=== PATIENT | female | born 1970 | race Caucasian/White ===

== ENCOUNTER → 2017-04-03 | Outpatient (CLI) | payer OTHER ==
[2017-04-03 11:34] LABS: HEMATOCRIT 43.8 % (34.6-47.8); HEMOGLOBIN 14.8 g/dL (11.7-16.4); WHITE BLOOD COUNT 8.6 x10^3/uL (3.4-10)
[2017-04-03 11:56] LABS: ASPARTATE AMINO TRANSFERASE 19 U/L (15-37); C-REACTIVE PROTEIN, QUANT 0.05 mg/dL (0.02-0.49)
== END | disposition home or self-care (01) ==
LOC: LAB 11:21
PROVIDERS: ATTEND Internal Medicine
DX: M05.79 Rheumatoid arthritis with rheumatoid factor of multiple sites without organ or systems involvement (principal); Z79.899 Other long term (current) drug therapy
CPT/HCPCS: 36415; 80076; 82565; 85025; 85651; 86140

== ENCOUNTER 2017-04-22 17:53 | Emergency (ER) | payer OTHER ==
[~2017-04-22] VITALS: Ht 162.6 cm; Wt 72.0 kg
[2017-04-22] MEDS ORDERED: ALBUTEROL/IPRATROPIUM 2.5MG/0.5MG, 3 ML ONE (18:26)
[2017-04-22] MEDS ORDERED: PLEASE ENTER ALLERGIES MC SCH ×2 (18:30)
[2017-04-22 18:31] LABS: HEMATOCRIT 43.7 % (34.6-47.8); HEMOGLOBIN 14.7 g/dL (11.7-16.4); WHITE BLOOD COUNT 8.4 x10^3/uL (3.4-10)
[2017-04-22] MEDS: ALBUTEROL/IPRATROPIUM 2.5MG/0.5MG, 3 ML NPPB SCH (18:40)
[2017-04-22 18:42] LABS: BLOOD UREA NITROGEN 14 mg/dL (7-18)
[2017-04-22] MEDS ORDERED: OMNIPAQUE 350 MG/ML, 100ML BOTTLE ONE (19:00)
[2017-04-22] MEDS ORDERED: IBUP-1222 PO (19:56)
[2017-04-22] MEDS ORDERED: BECL8.7A7 INH (19:56)
[2017-04-22] MEDS ORDERED: ALBU8.5H8 INH (19:56)
[2017-04-22] MEDS ORDERED: ADAL40KI SQ (19:56)
[2017-04-22 20:19] VITALS: BP 105/75
== END 2017-04-22 20:48 | disposition home or self-care (01) ==
LOC: ED 18:01
DX: J45.31 Mild persistent asthma with (acute) exacerbation (principal)
CPT/HCPCS: 36415; 71020; 71275; 80048; 82040; 85025; 93005; 94640; 99285; J7512; Q9967; J7620

== ENCOUNTER → 2017-06-15 | Outpatient (CLI) | payer OTHER ==
[~2017-06-15] MED LIST: ADAL40KI SQ; ALBU8.5H8 INH; BECL8.7A7 INH; IBUP-1222 PO
[2017-06-15 09:13] LABS: ASPARTATE AMINO TRANSFERASE 12 U/L (15-37); BLOOD UREA NITROGEN 16 mg/dL (7-18)
[2017-06-15 09:34] LABS: HEMATOCRIT 44.5 % (34.6-47.8); HEMOGLOBIN 15.1 g/dL (11.7-16.4); WHITE BLOOD COUNT 8.8 x10^3/uL (3.4-10)
[2017-06-15 09:37] LABS: C-REACTIVE PROTEIN, QUANT 0.05 mg/dL (0.02-0.49)
== END | disposition home or self-care (01) ==
LOC: LAB 08:48
PROVIDERS: ATTEND Nurse Practitioner Family
DX: Z13.89 Encounter for screening for other disorder (principal); Z51.81 Encounter for therapeutic drug level monitoring; M05.79 Rheumatoid arthritis with rheumatoid factor of multiple sites without organ or systems involvement; Z79.899 Other long term (current) drug therapy
CPT/HCPCS: 36415; 80053; 80061; 82248; 85025; 85651; 86140

== ENCOUNTER → 2018-01-14 | Outpatient (CLI) | payer OTHER ==
[2018-01-14 09:13] LABS: BASOPHILS # (AUTO) 0.02 x10^3/uL (0-0.1); BASOPHILS % (AUTO) 0 % (0-1); EOSINOPHILS # (AUTO) 0.13 x10^3/uL (0-0.4); EOSINOPHILS % (AUTO) 2 % (1-7); LYMPHOCYTES # (AUTO) 1.36 x10^3/uL (1-3.4); LYMPHOCYTES % (AUTO) 19 % (22-44); MD NO; MEAN CORPUSCULAR HEMOGLOBIN 31.3 pg (27.0-34.8); MEAN CORPUSCULAR HGB CONC 33.9 g/dL (32.4-35.8); MEAN CORPUSCULAR VOLUME 92.2 fL (80-100); MEAN PLATELET VOLUME 10.4 fL (7.4-10.4); MONOCYTES # (AUTO) 0.42 x10^3/uL (0.2-0.8); MONOCYTES % (AUTO) 6 % (2-9); NEUTROPHILS # (AUTO) 5.19 x10^3/uL (1.8-6.8); NEUTROPHILS % (AUTO) 73 % (42-75); PLATELET COUNT 207 x10^3/uL (130-400); RED BLOOD COUNT 4.88 x10^6/uL (3.82-5.3); RED CELL DISTRIBUTION WIDTH 13.4 % (9.6-15.2)
[2018-01-14 09:28] LABS: ALBUMIN 3.7 g/dL (3.4-5.0); BILIRUBIN, DIRECT 0.1 mg/dL (0.1-0.2)
[2018-01-14 09:31] LABS: ALANINE AMINOTRANSFERASE 32 U/L (12-78); ALKALINE PHOSPHATASE 67 U/L (45-117); BILIRUBIN,INDIRECT 0.4 mg/dL (0.0-2.0); BILIRUBIN,TOTAL 0.5 mg/dL (0.2-1.0); C-REACTIVE PROTEIN, QUANT 0.08 mg/dL (0.02-0.49); CREATININE 0.68 mg/dL (0.55-1.02); TOTAL PROTEIN 7.7 g/dL (6.4-8.2)
== END | disposition home or self-care (01) ==
LOC: LAB 08:58
PROVIDERS: ATTEND Internal Medicine
DX: M05.79 Rheumatoid arthritis with rheumatoid factor of multiple sites without organ or systems involvement (principal); R76.0 Raised antibody titer; Z79.899 Other long term (current) drug therapy
CPT/HCPCS: 36415; 80076; 82565; 85025; 85651; 86140

== ENCOUNTER → 2018-06-18 | Outpatient (CLI) | payer OTHER ==
[2018-06-18 13:26] LABS: BASOPHILS # (AUTO) 0.03 x10^3/uL (0-0.1); BASOPHILS % (AUTO) 0 % (0-1); EOSINOPHILS # (AUTO) 0.29 x10^3/uL (0-0.4); EOSINOPHILS % (AUTO) 3 % (1-7); LYMPHOCYTES # (AUTO) 2.28 x10^3/uL (1-3.4); LYMPHOCYTES % (AUTO) 24 % (22-44); MD NO; MEAN CORPUSCULAR HEMOGLOBIN 31.3 pg (27.0-34.8); MEAN CORPUSCULAR HGB CONC 33.9 g/dL (32.4-35.8); MEAN CORPUSCULAR VOLUME 92.4 fL (80-100); MEAN PLATELET VOLUME 9.9 fL (7.4-10.4); MONOCYTES % (AUTO) 4 % (2-9); NEUTROPHILS # (AUTO) 6.56 x10^3/uL (1.8-6.8); NEUTROPHILS % (AUTO) 69 % (42-75); PLATELET COUNT 221 x10^3/uL (130-400); RED BLOOD COUNT 4.91 x10^6/uL (3.82-5.3); RED CELL DISTRIBUTION WIDTH 13.2 % (9.6-15.2)
[2018-06-18 13:41] LABS: ALBUMIN 3.8 g/dL (3.4-5.0)
[2018-06-18 13:49] LABS: ALANINE AMINOTRANSFERASE 44 U/L (12-78); ALKALINE PHOSPHATASE 72 U/L (45-117); BILIRUBIN, DIRECT 0.1 mg/dL (0.1-0.2); BILIRUBIN,INDIRECT 0.5 mg/dL (0.0-2.0); BILIRUBIN,TOTAL 0.6 mg/dL (0.2-1.0); C-REACTIVE PROTEIN, QUANT 0.03 mg/dL (0.02-0.49); CREATININE 0.89 mg/dL (0.55-1.02); TOTAL PROTEIN 7.9 g/dL (6.4-8.2)
[2018-06-18 14:02] LABS: HCT (SEDRATE) 45.3 % (34.6-47.8)
== END | disposition home or self-care (01) ==
LOC: LAB 13:13
PROVIDERS: ATTEND Internal Medicine
DX: M05.79 Rheumatoid arthritis with rheumatoid factor of multiple sites without organ or systems involvement (principal); Z79.899 Other long term (current) drug therapy
CPT/HCPCS: 36415; 80076; 82565; 85025; 85651; 86140

== ENCOUNTER 2018-12-05 03:18 | Emergency (ER) | payer OTHER ==
[~2018-12-05] VITALS: Ht 162.6 cm; Wt 71.8 kg
[2018-12-05] MEDS ORDERED: MORPHINE SULFATE 4 MG/ML, 1ML ONE (03:50)
[2018-12-05] MEDS ORDERED: ONDANSETRON 2MG/ML, 2ML ONE (03:50)
[2018-12-05] MEDS ORDERED: ONDANSETRON 2MG/ML, 2ML IVPush ONE (04:00)
[2018-12-05] MEDS ORDERED: SODIUM CHLORIDE FLUSH 10ML SYR IVF ONE (04:00)
[2018-12-05] MEDS ORDERED: MORPHINE SULFATE 4 MG/ML, 1ML IVPush PRN (04:00)
--- NOTE | 2018-12-05 04:03 | NUR ---
PT MEDICATED PER OCT. MONITORS IN PLACE, SIDERAILS UP 2, CALL LIGHT WITHIN REACH. PROVIDED PT WITH HAT, AWARE OF NEED FOR STOOL SAMPLE
[2018-12-05] MEDS ORDERED: BUDE10.22 INH (04:07)
--- NOTE | 2018-12-05 04:19 | NUR ---
CT PENDING LABS/CREATINE
[2018-12-05 04:24] LABS: BASOPHILS # (AUTO) 0.05 x10^3/uL (0-0.1); BASOPHILS % (AUTO) 0 % (0-1); EOSINOPHILS # (AUTO) 0.07 x10^3/uL (0-0.4); EOSINOPHILS % (AUTO) 1 % (1-7); LYMPHOCYTES # (AUTO) 0.81 x10^3/uL (1-3.4); LYMPHOCYTES % (AUTO) 6 % (22-44); MD NO; MEAN CORPUSCULAR HEMOGLOBIN 30.7 pg (27.0-34.8); MEAN CORPUSCULAR HGB CONC 33.9 g/dL (32.4-35.8); MEAN CORPUSCULAR VOLUME 90.4 fL (80-100); MEAN PLATELET VOLUME 10.2 fL (7.4-10.4); MONOCYTES # (AUTO) 0.37 x10^3/uL (0.2-0.8); MONOCYTES % (AUTO) 3 % (2-9); NEUTROPHILS # (AUTO) 12.57 x10^3/uL (1.8-6.8); NEUTROPHILS % (AUTO) 91 % (42-75); PLATELET COUNT 204 x10^3/uL (130-400); RED BLOOD COUNT 4.81 x10^6/uL (3.82-5.3); RED CELL DISTRIBUTION WIDTH 13.1 % (9.6-15.2)
[2018-12-05 04:31] LABS: ALBUMIN 3.3 g/dL (3.4-5.0); ANION GAP 4 mmol/L (5-15); CALCIUM 8.6 mg/dL (8.5-10.1); CHLORIDE 106 mmol/L (98-107)
[2018-12-05 04:35] LABS: ALANINE AMINOTRANSFERASE 37 U/L (12-78); ALKALINE PHOSPHATASE 82 U/L (45-117); BILIRUBIN,TOTAL 0.5 mg/dL (0.2-1.0); CREATININE 0.77 mg/dL (0.55-1.02); TOTAL PROTEIN 7.3 g/dL (6.4-8.2)
--- NOTE | 2018-12-05 04:44 | NUR ---
pt resting on gurney, monitors in place, call light within reach. awaiting ct
--- NOTE | 2018-12-05 05:04 | NUR ---
PT TO CT
[2018-12-05] MEDS ORDERED: OMNIPAQUE 350 MG/ML, 100ML BOTTLE ONE (05:06)
--- NOTE | 2018-12-05 05:17 | NUR ---
pt resting on gurney, monitors in place, call light within reach. pt stated she is not able to provide stool sample at this time, awaiting ct result
--- NOTE | 2018-12-05 05:51 | NUR ---
given dc instruction pt understood obtained consent sign of narcotic rescription pt understood pt up ambulated to check out
[2018-12-05 05:53] VITALS: BP 124/82
== END 2018-12-05 05:56 | disposition home or self-care (01) ==
LOC: ED 05:29
DX: K92.1 Melena (principal); K52.9 Noninfective gastroenteritis and colitis, unspecified
CPT/HCPCS: 36415; 74177; 80053; 83690; 85025; 96374; 96375; 99284; J2405; Q9967

== ENCOUNTER 2018-12-30 13:25 | Outpatient (CLI) | payer OTHER ==
[~2018-12-30 13:25] MED LIST changes: +BUDE10.22 INH
[2018-12-30 13:39] LABS: BASOPHILS # (AUTO) 0.04 x10^3/uL (0-0.1); BASOPHILS % (AUTO) 0 % (0-1); EOSINOPHILS # (AUTO) 0.19 x10^3/uL (0-0.4); EOSINOPHILS % (AUTO) 2 % (1-7); LYMPHOCYTES # (AUTO) 1.83 x10^3/uL (1-3.4); LYMPHOCYTES % (AUTO) 17 % (22-44); MD NO; MEAN CORPUSCULAR HEMOGLOBIN 29.5 pg (27.0-34.8); MEAN CORPUSCULAR HGB CONC 32.3 g/dL (32.4-35.8); MEAN CORPUSCULAR VOLUME 91.1 fL (80-100); MEAN PLATELET VOLUME 10.4 fL (7.4-10.4); MONOCYTES % (AUTO) 6 % (2-9); NEUTROPHILS # (AUTO) 8.26 x10^3/uL (1.8-6.8); NEUTROPHILS % (AUTO) 76 % (42-75); PLATELET COUNT 218 x10^3/uL (130-400); RED BLOOD COUNT 4.78 x10^6/uL (3.82-5.3); RED CELL DISTRIBUTION WIDTH 13.3 % (9.6-15.2)
[2018-12-30 13:47] LABS: ALANINE AMINOTRANSFERASE 30 U/L (12-78); ALBUMIN 3.5 g/dL (3.4-5.0); BILIRUBIN, DIRECT 0.2 mg/dL (0.1-0.2); C-REACTIVE PROTEIN, QUANT 0.13 mg/dL (0.02-0.49); CREATININE 0.79 mg/dL (0.55-1.02)
[2018-12-30 13:49] LABS: ALKALINE PHOSPHATASE 74 U/L (45-117); BILIRUBIN,INDIRECT 0.6 mg/dL (0.0-2.0); BILIRUBIN,TOTAL 0.8 mg/dL (0.2-1.0); TOTAL PROTEIN 7.7 g/dL (6.4-8.2)
[2018-12-30 14:37] LABS: HCT (SEDRATE) 43.5 % (34.6-47.8)
== END 2018-12-30 23:59 | disposition home or self-care (01) ==
LOC: LAB 13:25
PROVIDERS: ATTEND Internal Medicine
DX: M05.79 Rheumatoid arthritis with rheumatoid factor of multiple sites without organ or systems involvement (principal); Z79.899 Other long term (current) drug therapy
CPT/HCPCS: 36415; 80076; 82565; 85025; 85651; 86140

== ENCOUNTER → 2019-07-10 | Outpatient (CLI) | payer OTHER | END | disposition home or self-care (01) | LOC: CFH 08:52 | PROVIDERS: ATTEND Internal Medicine | DX: Z12.2 Encounter for screening for malignant neoplasm of respiratory organs (principal); J44.9 Chronic obstructive pulmonary disease, unspecified; F17.200 Nicotine dependence, unspecified, uncomplicated; M05.79 Rheumatoid arthritis with rheumatoid factor of multiple sites without organ or systems involvement; Z79.899 Other long term (current) drug therapy | CPT/HCPCS: G0297 ==

== ENCOUNTER 2019-08-09 13:21 | Inpatient (IN) | payer OTHER ==
[~2019-08-09] VITALS: Ht 162.6 cm; Wt 75.7 kg
--- NOTE | 2019-08-09 14:11 | NUR ---
PT CAME IN CO OF "RASH ALL OVER HER BODY". ALL HER SKIN IS COVERED IN RED RASH LIKE PATCHES. THIS STARTED ON SUNDAY AND HAS BEEN GETTING WORSE. PT STATES IT HAMMONDS AT TIME. DOESNT ITCH. CALL LIGHT WITHIN REACH. AWAITING LAB RESULTS
[2019-08-09] MEDS ORDERED: ALBUTEROL SULFATE 2.5 MG/3 ML ONE (14:18)
[2019-08-09 14:21] LABS: HCT (SEDRATE) 49.9 % (34.6-47.8); MEAN CORPUSCULAR HEMOGLOBIN 31.2 pg (27.0-34.8); MEAN CORPUSCULAR HGB CONC 33.2 g/dL (32.4-35.8); MEAN CORPUSCULAR VOLUME 94.1 fL (80-100); MEAN PLATELET VOLUME 10.7 fL (7.4-10.4); PLATELET COUNT 222 x10^3/uL (130-400); RED BLOOD COUNT 5.29 x10^6/uL (3.82-5.3); RED CELL DISTRIBUTION WIDTH 13.4 % (9.6-15.2)
[2019-08-09 14:24] LABS: ALANINE AMINOTRANSFERASE 67 U/L (12-78); ALBUMIN 2.7 g/dL (3.4-5.0); ANION GAP 9 mmol/L (5-15); CALCIUM 8.3 mg/dL (8.5-10.1); CHLORIDE 101 mmol/L (98-107); CREATININE 1.26 mg/dL (0.55-1.02)
[2019-08-09] MEDS ORDERED: ALBUTEROL SULFATE 2.5 MG/3 ML NPPB ONE (14:30)
[2019-08-09 14:31] LABS: ALKALINE PHOSPHATASE 103 U/L (45-117); BILIRUBIN,TOTAL 0.8 mg/dL (0.2-1.0); TOTAL PROTEIN 6.7 g/dL (6.4-8.2)
[2019-08-09 14:31] LABS: CULTURE INDICATED? YES; MICROSCOPIC INDICATED
[2019-08-09 14:47] LABS: MD YES
[2019-08-09 14:59] LABS: <PLATELET ESTIMATE> ADEQUATE; <RBC MORPHOLOGY> NORMAL; LARGE PLATELETS 1+
[2019-08-09] MEDS ORDERED: SODIUM CHLORIDE 0.9%, 500ML IVBOLUS ONE (15:30)
[2019-08-09] MEDS: PIPERACILLIN/TAZO/PMX 3.375GM 50 ML IVPB ONE ×2 (15:30→16:03)
[2019-08-09] MEDS ORDERED: VANCOMYCIN PER PHARMACY MC ONE (15:30)
[2019-08-09] MEDS ORDERED: PIPERACILLIN/TAZO/PMX 3.375GM 50 ML ONE (16:00)
[2019-08-09] MEDS ORDERED: PHARMACOKINETIC CONSULTATION MC ONE (16:00)
[2019-08-09] MEDS ORDERED: VANCOMYCIN 1,500 MG in SODIUM CHLORIDE 0.9% 250 ML IV ONE (16:00)
[2019-08-09] MEDS ORDERED: ENOXAPARIN 40 MG/0.4 ML SQ SCH (17:00)
[2019-08-09] MEDS ORDERED: DIPHENHYDRAMINE 25 MG CAPSULE PO PRN (17:00)
[2019-08-09] MEDS ORDERED: hydrALAzine 20 MG/ML, 1ML IVPush PRN (17:00)
[2019-08-09] MEDS ORDERED: DOCUSATE 100 MG CAPSULE PO PRN (17:00)
[2019-08-09] MEDS ORDERED: ONDANSETRON 2MG/ML, 2ML IVPush PRN (17:00)
[2019-08-09] MEDS ORDERED: ONDANSETRON ODT 4 MG PO PRN (17:00)
[2019-08-09 17:20] VITALS: BP 94/64
[2019-08-09 17:21] LABS: INTERNATIONAL NORMALIZED RATIO 1.17 (0.93-1.1); PROTHROMBIN TIME 12.2 Seconds (9.6-11.5)
[2019-08-09] MEDS ORDERED: LACTATED RINGERS 1,000 ML IVBOLUS ONE (17:30)
[2019-08-09] MEDS: ALBUTEROL/IPRATROPIUM 2.5MG/0.5MG, 3 ML NPPB SCH ×2 (19:30→23:30)
[2019-08-09] MEDS: DIPHENHYDRAMINE 25 MG CAPSULE PO SCH ×2 (19:45→21:55)
[2019-08-09] MEDS: BUDESONIDE 0.5 MG/2 ML INHA NPPB SCH (20:37)
[2019-08-09] MEDS ORDERED: ALBUTEROL SULFATE 2.5 MG/3 ML NPPB SCH (21:00)
[2019-08-09] MEDS ORDERED: ALBUTEROL SULFATE 2.5 MG/3 ML NPPB PRN (21:00)
[2019-08-09] MEDS ORDERED: VANCOMYCIN 1,500 MG in SODIUM CHLORIDE 0.9% 250 ML IVPB ONE (21:49)
[2019-08-09] MEDS: FAMOTIDINE 20 MG TABLET PO SCH (21:55)
[2019-08-09] MEDS: HEPARIN 5,000 UNITS/ML, 1ML SQ SCH (21:56)
[2019-08-09] MEDS: SODIUM CHLORIDE 0.9% 1,000 ML IV SCH (22:48)
[2019-08-09] MEDS ORDERED: OMNIPAQUE 350 MG/ML, 100ML BOTTLE ONE (23:28)
[2019-08-10 01:56] LABS: RAPID INFLUENZA A Negative (Negative); RAPID INFLUENZA B Negative (Negative)
[2019-08-10 01:58] VITALS: BP 98/70
[2019-08-10 06:02] LABS: INTERNATIONAL NORMALIZED RATIO 1.15 (0.93-1.1); MEAN CORPUSCULAR HEMOGLOBIN 31.4 pg (27.0-34.8); MEAN CORPUSCULAR HGB CONC 33.4 g/dL (32.4-35.8); MEAN CORPUSCULAR VOLUME 94.1 fL (80-100); MEAN PLATELET VOLUME 11.3 fL (7.4-10.4); PLATELET COUNT 145 x10^3/uL (130-400); RED BLOOD COUNT 4.35 x10^6/uL (3.82-5.3); RED CELL DISTRIBUTION WIDTH 13.2 % (9.6-15.2)
[2019-08-10 06:08] LABS: MD YES
[2019-08-10 06:10] LABS: CHLORIDE 109 mmol/L (98-107)
[2019-08-10] MEDS: HEPARIN 5,000 UNITS/ML, 1ML SQ SCH ×3 (06:24→21:56)
[2019-08-10 06:28] LABS: ALANINE AMINOTRANSFERASE 47 U/L (12-78); ALBUMIN 2.2 g/dL (3.4-5.0); ALKALINE PHOSPHATASE 77 U/L (45-117); ANION GAP 7 mmol/L (5-15); BILIRUBIN,TOTAL 0.4 mg/dL (0.2-1.0); CALCIUM 7.6 mg/dL (8.5-10.1); CREATININE 0.72 mg/dL (0.55-1.02); TOTAL PROTEIN 5.8 g/dL (6.4-8.2)
[2019-08-10 06:37] LABS: BAND#(MANUAL) 6.97 x10^3/uL; BANDS%(MANUAL) 43 % (0-7); EOS#(MANUAL) 0.16 x10^3/uL (0.0-0.4); EOS% (MANUAL) 1 % (1-7); LYMPH#(MANUAL) 0.16 x10^3/uL (1-3.4); LYMPHS% (MANUAL) 1 % (22-44); METAMYELOCYTES# (MANUAL) 0.32 x10^3/uL (0-0); METAMYELOCYTES% (MANUAL) 2 % (0-1); MONOS#(MANUAL) 0.16 x10^3/uL (0.3-2.7); MONOS% (MANUAL) 1 % (2-9); SEG#(MANUAL) 8.42 x10^3/uL (1.8-6.8); SEGS% (MANUAL) 52 % (42-75)
[2019-08-10 06:38] LABS: PMNS WITH VACUOLES 1+
[2019-08-10 06:39] LABS: <PLATELET ESTIMATE> ADEQUATE
[2019-08-10 06:47] LABS: LARGE PLATELETS 1+
[2019-08-10 06:48] LABS: <RBC MORPHOLOGY> NORMAL
[2019-08-10] MEDS ORDERED: CEFTRIAXONE PMX 2GM/50ML 50 ML IV SCH (07:00)
[2019-08-10 07:06] VITALS: BP 100/65
[2019-08-10] MEDS: ALBUTEROL/IPRATROPIUM 2.5MG/0.5MG, 3 ML NPPB SCH ×2 (08:00→20:16)
[2019-08-10] MEDS: BUDESONIDE 0.5 MG/2 ML INHA NPPB SCH ×2 (08:00→20:16)
[2019-08-10] MEDS: DIPHENHYDRAMINE 25 MG CAPSULE PO SCH ×3 (08:59→21:55)
[2019-08-10] MEDS: SODIUM CHLORIDE 0.9% 1,000 ML IV SCH (08:59)
[2019-08-10] MEDS: FAMOTIDINE 20 MG TABLET PO SCH ×2 (09:00→21:55)
[2019-08-10] MEDS ORDERED: AZITHROMYCIN 250 MG TABLET PO SCH (09:00)
[2019-08-10 09:37] LABS: SEGS% (MANUAL) 70 % (42-75)
[2019-08-10 09:40] LABS: BAND#(MANUAL) 3.89 x10^3/uL; BANDS%(MANUAL) 21 % (0-7); SEG#(MANUAL) 12.95 x10^3/uL (1.8-6.8)
[2019-08-10 09:41] LABS: LYMPH#(MANUAL) 0.19 x10^3/uL (1-3.4); LYMPHS% (MANUAL) 1 % (22-44); MONOS% (MANUAL) 2 % (2-9)
[2019-08-10 09:42] LABS: EOS#(MANUAL) 1.11 x10^3/uL (0.0-0.4); EOS% (MANUAL) 6 % (1-7); MONOS#(MANUAL) 0.37 x10^3/uL (0.3-2.7)
[2019-08-10 09:43] LABS: FREE T4 (FREE THYROXINE) 1.09 ng/dL (0.76-1.46)
[2019-08-10] MEDS ORDERED: LIDOCAINE 1%, 2ML INFIL ONE (11:30)
[2019-08-10 13:51] VITALS: BP 93/59
[2019-08-10 19:24] VITALS: BP 102/66
[2019-08-11 02:08] VITALS: BP 110/72
[2019-08-11] MEDS: HEPARIN 5,000 UNITS/ML, 1ML SQ SCH ×2 (06:11→14:00)
[2019-08-11 06:20] LABS: MEAN CORPUSCULAR HEMOGLOBIN 31.1 pg (27.0-34.8); MEAN CORPUSCULAR VOLUME 94.4 fL (80-100); MEAN PLATELET VOLUME 10.9 fL (7.4-10.4); PLATELET COUNT 210 x10^3/uL (130-400); RED BLOOD COUNT 4.18 x10^6/uL (3.82-5.3); RED CELL DISTRIBUTION WIDTH 13.3 % (9.6-15.2)
[2019-08-11 06:39] LABS: MD YES
[2019-08-11 06:43] LABS: <RBC MORPHOLOGY> NORMAL; BAND#(MANUAL) 3.63 x10^3/uL; BANDS%(MANUAL) 25 % (0-7); EOS#(MANUAL) 0.15 x10^3/uL (0.0-0.4); EOS% (MANUAL) 1 % (1-7); LYMPH#(MANUAL) 0.87 x10^3/uL (1-3.4); LYMPHS% (MANUAL) 6 % (22-44); METAMYELOCYTES# (MANUAL) 0.15 x10^3/uL (0-0); METAMYELOCYTES% (MANUAL) 1 % (0-1); SEG#(MANUAL) 9.72 x10^3/uL (1.8-6.8); SEGS% (MANUAL) 67 % (42-75)
[2019-08-11 06:44] LABS: <PLATELET ESTIMATE> ADEQUATE; LARGE PLATELETS 1+
[2019-08-11 06:45] LABS: PMNS WITH VACUOLES 1+
[2019-08-11 07:30] VITALS: BP 120/79
[2019-08-11] MEDS: DIPHENHYDRAMINE 25 MG CAPSULE PO SCH ×2 (08:39→17:14)
[2019-08-11] MEDS: CEFDINIR 300 MG CAPSULE PO SCH ×2 (08:39→08:42)
[2019-08-11] MEDS: FAMOTIDINE 20 MG TABLET PO SCH (08:39)
[2019-08-11] MEDS: ALBUTEROL/IPRATROPIUM 2.5MG/0.5MG, 3 ML NPPB SCH ×2 (10:20→10:30)
[2019-08-11] MEDS: BUDESONIDE 0.5 MG/2 ML INHA NPPB SCH (10:20)
[2019-08-11 12:40] LABS: MEAN CORPUSCULAR HEMOGLOBIN 31.3 pg (27.0-34.8); MEAN CORPUSCULAR HGB CONC 33.2 g/dL (32.4-35.8); MEAN CORPUSCULAR VOLUME 94.4 fL (80-100); PLATELET COUNT 219 x10^3/uL (130-400); RED BLOOD COUNT 4.24 x10^6/uL (3.82-5.3); RED CELL DISTRIBUTION WIDTH 13.3 % (9.6-15.2)
[2019-08-11 13:00] VITALS: BP 117/73
[2019-08-11 13:23] LABS: MD YES
[2019-08-11 13:29] LABS: <PLATELET ESTIMATE> ADEQUATE; <RBC MORPHOLOGY> NORMAL; BAND#(MANUAL) 2.91 x10^3/uL; BANDS%(MANUAL) 17 % (0-7); LARGE PLATELETS 1+; LYMPH#(MANUAL) 0.86 x10^3/uL (1-3.4); LYMPHS% (MANUAL) 5 % (22-44); MONOS#(MANUAL) 0.34 x10^3/uL (0.3-2.7); MONOS% (MANUAL) 2 % (2-9); SEGS% (MANUAL) 76 % (42-75)
[2019-08-11] MEDS ORDERED: FAMO20TA7 PO (16:06)
[2019-08-11] MEDS ORDERED: DIPH25CA26 PO (16:06)
== END 2019-08-11 18:15 | disposition home or self-care (01) | DRG 872 ==
LOC: ED 15:15 → EDIP 15:46 → 3N 17:15 → 4EST 20:39
PROVIDERS: ADMIT Family Medicine; ATTEND Family Medicine
PROC: 0HB6XZX Excision of Back Skin, External Approach, Diagnostic (ICD-10-PCS; principal; 2019-08-10)
DX: A41.9 Sepsis, unspecified organism (principal); J44.1 Chronic obstructive pulmonary disease with (acute) exacerbation; N39.0 Urinary tract infection, site not specified; D75.1 Secondary polycythemia; F17.210 Nicotine dependence, cigarettes, uncomplicated; L30.9 Dermatitis, unspecified; L50.9 Urticaria, unspecified; M06.9 Rheumatoid arthritis, unspecified; N20.0 Calculus of kidney
CPT/HCPCS: 36415; 84145; 87400; J3490; J7613; J7620; J7626; 71045; 74178; 80053; 81001; 83605; 83615; 83655; 83735; 84100; 84110; 84120; 84439; 84443; 84481; 85025; 85610; 85651; 85730; 86140; 87040; 87086; 88305; 94640; G0378; J0696; J1644; J2543; J3370; Q9967; J7030; J7040; J7050; J7120; J7512; Q0163

== ENCOUNTER → 2019-09-22 | Outpatient (CLI) | payer OTHER ==
[~2019-09-22] MED LIST changes: +DIPH25CA26 PO; +FAMO20TA7 PO
[2019-09-22 10:29] LABS: BASOPHILS # (AUTO) 0.01 x10^3/uL (0-0.1); BASOPHILS % (AUTO) 0 % (0-1); EOSINOPHILS # (AUTO) 0.13 x10^3/uL (0-0.4); EOSINOPHILS % (AUTO) 2 % (1-7); LYMPHOCYTES # (AUTO) 1.74 x10^3/uL (1-3.4); LYMPHOCYTES % (AUTO) 19 % (22-44); MD NO; MEAN CORPUSCULAR HEMOGLOBIN 30.9 pg (27.0-34.8); MEAN CORPUSCULAR HGB CONC 33.5 g/dL (32.4-35.8); MEAN CORPUSCULAR VOLUME 92.2 fL (80-100); MEAN PLATELET VOLUME 9.9 fL (7.4-10.4); MONOCYTES # (AUTO) 0.42 x10^3/uL (0.2-0.8); MONOCYTES % (AUTO) 5 % (2-9); NEUTROPHILS % (AUTO) 75 % (42-75); PLATELET COUNT 239 x10^3/uL (130-400); RED BLOOD COUNT 4.65 x10^6/uL (3.82-5.3); RED CELL DISTRIBUTION WIDTH 13.5 % (9.6-15.2)
[2019-09-22 10:39] LABS: ALANINE AMINOTRANSFERASE 35 U/L (12-78); ALBUMIN 3.5 g/dL (3.4-5.0); ANION GAP 7 mmol/L (5-15); CALCIUM 8.9 mg/dL (8.5-10.1); CHLORIDE 105 mmol/L (98-107); CREATININE 0.89 mg/dL (0.55-1.02)
[2019-09-22 10:49] LABS: ALKALINE PHOSPHATASE 76 U/L (45-117); BILIRUBIN,TOTAL 0.7 mg/dL (0.2-1.0); FREE T4 (FREE THYROXINE) 1.22 ng/dL (0.76-1.46); TOTAL PROTEIN 7.4 g/dL (6.4-8.2)
== END | disposition home or self-care (01) ==
LOC: LAB 10:19
PROVIDERS: ATTEND Nurse Practitioner Family
DX: Z12.11 Encounter for screening for malignant neoplasm of colon (principal); J44.9 Chronic obstructive pulmonary disease, unspecified; M06.9 Rheumatoid arthritis, unspecified; R21 Rash and other nonspecific skin eruption; Z72.0 Tobacco use; Z79.899 Other long term (current) drug therapy
CPT/HCPCS: 36415; 80053; 84439; 84443; 85025

== ENCOUNTER 2019-10-09 07:18 | Outpatient (CLI) | payer OTHER | END 2019-10-09 23:59 | disposition home or self-care (01) | LOC: CFH 07:18 | PROVIDERS: ATTEND Nurse Practitioner Family | DX: Z12.31 Encounter for screening mammogram for malignant neoplasm of breast (principal); N64.89 Other specified disorders of breast | CPT/HCPCS: 77067 ==

== ENCOUNTER → 2019-10-21 | Outpatient (CLI) | payer OTHER ==
[2019-10-21 08:36] LABS: BASOPHILS # (AUTO) 0.02 x10^3/uL (0-0.1); BASOPHILS % (AUTO) 0 % (0-1); EOSINOPHILS # (AUTO) 0.18 x10^3/uL (0-0.4); EOSINOPHILS % (AUTO) 3 % (1-7); LYMPHOCYTES # (AUTO) 1.36 x10^3/uL (1-3.4); LYMPHOCYTES % (AUTO) 19 % (22-44); MD NO; MEAN CORPUSCULAR HEMOGLOBIN 30.6 pg (27.0-34.8); MEAN CORPUSCULAR HGB CONC 33.6 g/dL (32.4-35.8); MEAN CORPUSCULAR VOLUME 91.2 fL (80-100); MEAN PLATELET VOLUME 9.7 fL (7.4-10.4); MONOCYTES # (AUTO) 0.44 x10^3/uL (0.2-0.8); MONOCYTES % (AUTO) 6 % (2-9); NEUTROPHILS # (AUTO) 5.05 x10^3/uL (1.8-6.8); NEUTROPHILS % (AUTO) 72 % (42-75); PLATELET COUNT 239 x10^3/uL (130-400); RED BLOOD COUNT 4.82 x10^6/uL (3.82-5.3); RED CELL DISTRIBUTION WIDTH 13.6 % (9.6-15.2)
[2019-10-21 08:47] LABS: HCT (SEDRATE) 44.8 % (34.6-47.8)
== END | disposition home or self-care (01) ==
LOC: LAB 08:18
PROVIDERS: ATTEND Internal Medicine
DX: M05.79 Rheumatoid arthritis with rheumatoid factor of multiple sites without organ or systems involvement (principal); R76.0 Raised antibody titer; Z79.899 Other long term (current) drug therapy
CPT/HCPCS: 36415; 85025; 85651; 86140

== ENCOUNTER 2019-12-16 10:33 | Outpatient (CLI) | payer OTHER ==
[2019-12-16 11:11] LABS: FIO2 ROOM AIR %
== END 2019-12-16 23:59 | disposition home or self-care (01) ==
LOC: LAB 10:33
PROVIDERS: ATTEND Internal Medicine
DX: J44.9 Chronic obstructive pulmonary disease, unspecified (principal)
CPT/HCPCS: 36600; 82103; 82104; 82803

== ENCOUNTER → 2020-07-06 | Outpatient (CLI) | payer OTHER | END | disposition home or self-care (01) | LOC: CFH 08:34 | PROVIDERS: ATTEND Internal Medicine | DX: Z12.2 Encounter for screening for malignant neoplasm of respiratory organs (principal); F17.210 Nicotine dependence, cigarettes, uncomplicated; I25.10 Atherosclerotic heart disease of native coronary artery without angina pectoris | CPT/HCPCS: G0297 ==

== ENCOUNTER → 2020-12-16 | Outpatient (CLI) | payer OTHER ==
[2020-12-16 15:47] LABS: ALBUMIN 3.7 g/dL (3.4-5.0); ANION GAP 5 mmol/L (5-15); CALCIUM 8.9 mg/dL (8.5-10.1); CHLORIDE 104 mmol/L (98-107)
[2020-12-16 15:47] LABS: BASOPHILS % (AUTO) 1 % (0-1); EOSINOPHILS % (AUTO) 2 % (1-7); LYMPHOCYTES % (AUTO) 18 % (22-44); MEAN CORPUSCULAR HEMOGLOBIN 31.3 pg (27.0-34.8); MEAN PLATELET VOLUME 9.8 fL (7.4-10.4); MONOCYTES % (AUTO) 5 % (2-9); NEUTROPHILS % (AUTO) 74 % (42-75); PLATELET COUNT 255 x10^3/uL (130-400); RED BLOOD COUNT 4.74 x10^6/uL (3.82-5.3); RED CELL DISTRIBUTION WIDTH 13.7 % (9.6-15.2)
[2020-12-16 15:48] LABS: ALBUMIN 3.8 g/dL (3.4-5.0); BILIRUBIN, DIRECT 0.2 mg/dL (0.1-0.2); C-REACTIVE PROTEIN, QUANT 0.05 mg/dL (0.02-0.49); MD NO
[2020-12-16 15:50] LABS: BILIRUBIN,INDIRECT 0.7 mg/dL (0.0-2.0); BILIRUBIN,TOTAL 0.9 mg/dL (0.2-1.0); TOTAL PROTEIN 7.7 g/dL (6.4-8.2)
[2020-12-16 15:51] LABS: ALANINE AMINOTRANSFERASE 31 U/L (12-78); ALKALINE PHOSPHATASE 78 U/L (45-117); BILIRUBIN,TOTAL 0.8 mg/dL (0.2-1.0); CHOL/HDL RATIO 5.1; CHOLESTEROL, TOTAL 352 mg/dL (140-239); CREATININE 0.79 mg/dL (0.55-1.02); HDL CHOL % 20 % (28-40); HDL CHOLESTEROL (DIRECT) 69 mg/dL (40-60); LDL CHOLESTEROL,CALCULATED 270 mg/dL (54-169); LDL/HDL RATIO 3.9 (0.5-3.0); TOTAL PROTEIN 7.7 g/dL (6.4-8.2); TRIGLYCERIDES 67 mg/dL (50-200); VLDL CHOLESTEROL 13 mg/dL (0-25)
[2020-12-16 16:40] LABS: HCT (SEDRATE) 43.8 % (34.6-47.8)
== END | disposition home or self-care (01) ==
LOC: LAB 15:15
PROVIDERS: ATTEND Internal Medicine
DX: M05.79 Rheumatoid arthritis with rheumatoid factor of multiple sites without organ or systems involvement (principal); M05.80 Other rheumatoid arthritis with rheumatoid factor of unspecified site; J43.9 Emphysema, unspecified; E78.5 Hyperlipidemia, unspecified; R92.2 Inconclusive mammogram; F10.10 Alcohol abuse, uncomplicated; Z72.0 Tobacco use; Z79.899 Other long term (current) drug therapy
CPT/HCPCS: 36415; 80053; 80061; 80076; 82306; 85025; 85651; 86140

== ENCOUNTER 2021-01-06 10:16 | Emergency (ER) | payer OTHER ==
[~2021-01-06] VITALS: Ht 162.6 cm; Wt 56.0 kg
[2021-01-06 10:28] VITALS: BP 112/72
[2021-01-06] MEDS ORDERED: LORazepam 0.5MG TABLET PO ONE (10:30)
--- NOTE | 2021-01-06 10:35 | NUR ---
[employer] PLACED HOLD PATIENT TANGENTIAL/TEARFUL/HYPERVERBAL "I THINK MY COMPUTER IS HACKED AND THEY'RE GETTING ME. I AM TOTALLY OVERWHELMED AND I HAVE FLEETING IDEAS OF TAKING PILLS AND DRINKING MORE THAN NORMAL." SEES A THERAPIST BI-WEEKLY. REPORTS "SOMEBODY MAY HAVE TOLD ME I MIGHT HAVE HAD BIPOLAR." NO MEDS DOES BINGE DRINK LEGAL 2000 PLACED BY JERAMIE DAVEY
--- NOTE | 2021-01-06 10:55 | NUR ---
ROOM CONTROLLED WITH PSYCHIATRIC PRECAUTIONS SITTER WITHIN DIRECT EYELINE BELONGINGS LOCKED UP PATIENT UPDATED ON ESTIMATED POC
--- NOTE | 2021-01-06 10:58 | NUR ---
PATIENT DEFERRING MEDICATION AT THIS TIME-HAM SMOKER AGREEABLE. WILL RE-ASSESS AFTER PSYCH EVAL
--- NOTE | 2021-01-06 12:06 | NUR ---
NO CHANGES IN EXAM SITTER REMAINS WITHIN EYELINE PEEWEE (PSYCHIATRY RN HEMATOLOGY) AT BEDSIDE
--- NOTE | 2021-01-06 12:56 | NUR ---
BEDSIDE REPORT RECEIVED FROM TAMICA PEDRO FOR TRANSFER OF PATIENT CARE.
--- NOTE | 2021-01-06 13:03 | NUR ---
REPORT TO CYNTHIA DAVEY
--- NOTE | 2021-01-06 13:03 | NUR ---
PEEWEE GAO REMAINS AT BEDSIDE FOR ASSESSMENT
--- NOTE | 2021-01-06 13:39 | NUR ---
BREAK RN: GABE GONSALEZ APRN AT BEDSIDE FOR ASSESSMENT.
[2021-01-06] MEDS ORDERED: RISPERIDONE 0.5 MG TABLET PO ONE (14:00)
--- NOTE | 2021-01-06 14:07 | NUR ---
BREAK RN: MED REQUESTED FROM PHARMACY
--- NOTE | 2021-01-06 14:14 | NUR ---
PATIENT MEDICATED PER eMAR. MURRAY VIDES AT BEDSIDE TO DISCUSS POC AND DISCHARGE.
--- NOTE | 2021-01-06 14:59 | NUR ---
Patient given discharge instructions and prescription and they have confirmed that they understand the instructions. Patient stable and ambulatory with steady gait from ED to private vehicle.
== END 2021-01-06 15:00 | disposition home or self-care (01) ==
LOC: ED 14:42
DX: F32.9 Major depressive disorder, single episode, unspecified (principal); R45.851 Suicidal ideations
CPT/HCPCS: 99285

== ENCOUNTER → 2021-03-31 | Outpatient (CLI) | payer OTHER ==
[2021-03-31 09:26] LABS: ALANINE AMINOTRANSFERASE 31 U/L (12-78); ALBUMIN 3.4 g/dL (3.4-5.0); ANION GAP 6 mmol/L (5-15); CALCIUM 8.9 mg/dL (8.5-10.1); CHLORIDE 106 mmol/L (98-107); CREATININE 0.69 mg/dL (0.55-1.02)
[2021-03-31 09:28] LABS: ALKALINE PHOSPHATASE 73 U/L (45-117); BILIRUBIN,TOTAL 0.6 mg/dL (0.2-1.0); TOTAL PROTEIN 7.3 g/dL (6.4-8.2)
== END | disposition home or self-care (01) ==
LOC: LAB 08:57
PROVIDERS: ATTEND Family Medicine
DX: E78.00 Pure hypercholesterolemia, unspecified (principal)
CPT/HCPCS: 36415; 80053